=== PATIENT | female | born 2000 | race Caucasian/White ===

== ENCOUNTER 2023-02-22 11:36 | Emergency (ER) | payer OTHER, SELFPAY ==
--- NOTE | ~2023-02-22 | XR_ITS ---
AP and lateral views of the right tibia/fibula Clinical History: Trauma Findings: There is an oblique, minimally displaced fracture of the lateral malleolus, at and just pro ximal to the level ankle mortise. No other fracture or dislocation seen.. Joint spaces are preserved without significant erosive or degenerative change. Soft tissues are unremarkable. Impression: Oblique, minimally displaced fracture of the lateral malleolus. Reviewed, dictated and finalized at location M. OGRAPHER Impression: Oblique, minimally displaced fracture of the lateral malleolus.
--- NOTE | ~2023-02-22 | XR_ITS ---
Right ankle Technique: AP, oblique, and lateral views were obtained. Clinical History: Pain Findings: There is an acute, oblique, minimally displaced fracture of the lateral malleolus, at and j ust proximal to the level ankle mortise. No other fracture or dislocation seen. Ankle mortise and oth er visualized joint spaces are preserved. Soft tissues are otherwise unremarkable. Impression: Oblique, minimally displaced fracture of the lateral malleolus, as detailed above. Reviewed, dictated and finalized at location M. PULLER Impression: Oblique, minimally displaced fracture of the lateral malleolus, as detailed abo ve.
--- NOTE | ~2023-02-22 | XR_ITS ---
Right foot Technique: AP, oblique, and lateral views were obtained. Clinical History: Pain Findings: No acute fracture or dislocation is seen. Osseous alignment is anatomic. Joint spaces are p reserved without erosive or degenerative change. Soft tissues are unremarkable. Impression: Unremarkable right foot radiographs. Reviewed, dictated and finalized at location . PICKER Impression: Unremarkable right foot radiographs.
--- NOTE | 2023-02-22 11:45 | ED.LOWEXIN ---
HPI - Extremity Injury (Lower) General Chief Complaint: Extremity Injury, Lower Stated Complaint: INJURED R ANKLE Time Seen by Provider: 02/22/23 12:15 Source: patient Mode of arrival: ambulatory Limitations: no limitations History of Present Illness HPI Narrative: Ebonie is a 22-year-old female patient presenting to clinic today with complaints of right leg, ankle, and foot pain. She reports she fell 5 days ago when walking on a unlevel path in [facility]. Reports that a person was getting ready to bump into her and she moved out the path and fell down and twisted her ankle. She is having pain to the distal lateral right leg, medial and lateral ankle, and also the top of the right foot with bruising and swelling noted to the ankle and foot and appears to be going up the leg. No fever or chills. Does have abrasions to her palms from the fall. Tetanus shot is up-to-date Related Data Home Medications Medication Instructions Recorded Confirmed desvenlafaxine succinate 50 mg 50 mg PO DAILY 02/22/23 02/22/23 tablet,extended release 24 hr topiramate 25 mg tablet 25 mg PO BID 02/22/23 02/22/23 Allergies Allergy/AdvReac Type Severity Reaction Status Date / Time [id number] Antimigraine Allergy Unknown Verified 02/22/23 12:22 Agents Review of Systems Review of Systems: Pertinent positives per HPI. Patient denies any fever, chills, rash, headache, visual changes, dizziness, cough, runny nose, sore throat, shortness of breath, chest pain, palpitations, nausea, vomiting, diarrhea, constipation, abdominal pain, or any urinary issues. PMFSH Comments At the time of my signature, I reviewed and agree with the nursing past medical, surgical, social, and family history. There is no relevant family history pertinent to the patient complaint. Exam Narrative: General: Well-developed, well nourished, in no apparent distress Head: Normocephalic, atraumatic. Cardio: Regular rate and rhythm, s1 and s2 normal, no murmur appreciated. Resp: Clear to auscultation bilaterally, no rhonchi, rales, wheezing or rubs. Musculoskeletal: No deformity, bruising and swelling noted to the right great toe, dorsal right foot, right ankle, and to the distal tib-fib, tender to palpation over the lateral tib-fib, dorsal foot, medial and lateral ankle, and right great toe, limited range of motion of the ankle joint and right great toe due to pain and swelling, muscle strength strong and equal, peripheral pulse strong, no cyanosis, sitting in a wheelchair Course Course Emergency Course: Portions of this record may have been created with voice recognition software. Level of Care: Express Care Visit Vital Signs Vital signs: Vital Signs Temperature 36.6 C 02/22/23 12:04 Pulse Rate 67 02/22/23 12:04 Respiratory Rate 16 02/22/23 12:04 Blood Pressure 120/84 02/22/23 12:04 Pulse Oximetry 100 02/22/23 12:04 Temperature 36.6 C 02/22/23 12:04 Pulse Rate 67 02/22/23 12:04 Respiratory Rate 16 02/22/23 12:04 Blood Pressure 120/84 02/22/23 12:04 Pulse Oximetry 100 02/22/23 12:04 Oxygen Delivery Room Air 02/22/23 12:12 Vital signs reviewed MDM - Extremity Injury (Lower) MDM Narrative Medical decision making narrative: At the time of visit patient is resting comfortably on the exam table. Patient appears to be nontoxic. X-ray of the right tib-fib, ankle, and foot were obtained. Fracture noted at the distal lateral malleolus of the right ankle-oblique mildly displaced fracture. Short-leg posterior OCL splint applied. Patient has her own crutches. Supportive measures were discussed with the patient and they voiced understanding discharge instructions and agrees to treatment plan. Return precautions reviewed Differential Diagnosis Differential diagnosis: Likely ankle sprain and strain, fracture of toe, ankle fracture (Contusion, foot sprain) and other (Tib-fib fracture) Imaging Data Radiologist's
[2023-02-22 12:04] VITALS: BP 120/84; PULSE 67; RESP 16; TEMP 36.6; O2SAT 100
--- NOTE | 2023-02-22 13:22 | PC.NURSE ---
PT HAS OWN CRUTCHES AND BOOT. RAD DISC AND REPORTS PROVIDED. PT LIVES IN [place], WILL DO ORTHO FOLLOW UP THERE. +PMS POST OCL APPLICATION.
== END 2023-02-22 13:15 | disposition home or self-care (01) ==
PROVIDERS: Emergency Provider Nurse Practitioner Family
DX: S82.61XA Displaced fracture of lateral malleolus of right fibula, initial encounter for closed fracture (principal); W19.XXXA Unspecified fall, initial encounter
CPT/HCPCS: 29515; 73590; 73610; 73630; 99214; G0463